=== PATIENT | female | born 1950 | race Caucasian/White ===

== ENCOUNTER → 2024-02-27 11:07 | Outpatient (REF) | payer OTHER, SELFPAY | LOC: HWRAD 11:07 | PROVIDERS: ATTENDING PHYSICIAN Internal Medicine Cardiovascular Disease; FAMILY PHYSICIAN Family Medicine | DX: R22.1 Localized swelling, mass and lump, neck (principal) | CPT/HCPCS: 76770 ==

== ENCOUNTER → 2024-05-06 11:53 | Outpatient (REF) | payer OTHER, SELFPAY | LOC: HWWDC 11:53 | PROVIDERS: ATTENDING PHYSICIAN Family Medicine | DX: Z12.31 Encounter for screening mammogram for malignant neoplasm of breast (principal) | CPT/HCPCS: 77063; 77067 ==